=== PATIENT | male | born 1960 | race Caucasian/White ===

== ENCOUNTER → 2021-12-23 | Outpatient (CLI) | payer BC ==
--- NOTE | 2021-12-23 15:47 | Diagnostic Imaging Report ---
INDICATION: Injury to right shoulder with pain. FINDINGS: 3 views. Glenohumeral joint shows some cephalad migration. The AC joint shows hypertrophic arthritic change. Articulating surfaces appear smooth. No fractures are seen. No significant osteophyte formation about the glenohumeral joint. No soft tissue calcification. IMPRESSION: Moderate arthritic changes. Findings are suggestive of chronic rotator cuff disease with hypertrophic arthritic AC joint. Dictated by: Dictated on workstation # [id number]
== END ==
LOC: RAD FS 09:51
DX: S49.91XA Unspecified injury of right shoulder and upper arm, initial encounter (principal); M19.011 Primary osteoarthritis, right shoulder; X58.XXXA Exposure to other specified factors, initial encounter
CPT/HCPCS: 73030